=== PATIENT | female | born 1950 | race Hispanic/Latino ===

== ENCOUNTER 2021-10-20 19:14 | Emergency (ER) | payer OTHER, MEDICARE ==
[~2021-10-20] VITALS: Ht 162.6 cm; Wt 63.0 kg
[2021-10-20 19:30] VITALS: BP 168/84
[2021-10-20 19:47] LABS: BASOPHILS % (AUTO) 0.4 % (0.0-5.0); HEMATOCRIT 40.2 % (36-48); LYMPHOCYTES % (AUTO) 5.8 % (21.0-51.0); MEAN CORPUSCULAR HGB CONC 33.1 g/dL (32.0-36.0); MEAN CORPUSCULAR VOLUME 90.5 fL (79-99); MONOCYTES % (AUTO) 6.9 % (3.0-13.0); NEUTROPHILS % (AUTO) 86.5 % (40.0-77.0); PLATELET COUNT (AUTO) 220 K/uL (130-400); RED BLOOD CELL COUNT(AUTO) 4.44 MIL/uL (4.00-5.50); RED CELL DISTRIBUTION WIDTH 12.4 % (11.0-15.5); WHITE BLOOD COUNT (AUTO) 8.4 K/uL (4.8-10.8)
[2021-10-20] MEDS ORDERED: CETI10CA5 PO (19:48)
[2021-10-20] MEDS ORDERED: ONDANSETRON 4MG INJ IVP ONE (20:00)
[2021-10-20] MEDS ORDERED: KETOROLAC 15MG/ML VIAL (15MG/ML) IV ONE (20:00)
[2021-10-20] MEDS ORDERED: 0.9% NACL 500ML IV.SOLN 500 ML IV ONE (20:00)
[2021-10-20 20:19] LABS: CREATININE 0.7 mg/dL (0.5-1.5); POTASSIUM 3.4 mmol/L (3.5-5.1)
[2021-10-20 20:24] LABS: APPEARANCE,URINE Clear (CLEAR); BILIRUBIN,URINE Negative (NEGATIVE); COLOR,URINE Yellow (YELLOW); GLUCOSE, URINE (UA) Negative (NEGATIVE); KETONES,URINE 15 mg/dL (NEGATIVE); LEUKOCYTE ESTERASE ,URINE Trace (NEGATIVE); NITRATE,URINE Negative (NEGATIVE); OCCULT BLOOD,URINE Small (NEGATIVE); PROTEIN,URINE Trace mg/dL (NEGATIVE)
[2021-10-20 20:30] LABS: BACTERIA,URINE Rare /HPF (None Seen); SQUAMOUS EPITHELIAL CELL,UR Few /HPF (0-2)
[2021-10-20 20:32] LABS: ALBUMIN 3.9 g/dL (3.5-5.0); BILIRUBIN,TOTAL 0.6 mg/dL (0.2-1.0)
[2021-10-20] MEDS ORDERED: ONDA4TAB10 PO (20:54)
[2021-10-20] MEDS ORDERED: AZIT500T2 PO (20:54)
[2021-10-20] MEDS ORDERED: GUAIF10 PO (20:54)
[2021-10-20] MEDS ORDERED: ACET-66 PO (20:54)
== END 2021-10-20 21:22 | disposition home or self-care (01) ==
LOC: EDH 19:14
DX: U07.1 COVID-19 (principal); J45.909 Unspecified asthma, uncomplicated; Z98.890 Other specified postprocedural states
CPT/HCPCS: 36415; 71045; 80053; 81001; 83605; 84484; 85025; 85378; 87635; 87804 ×2; 93005; 96374; 96375; 99285; C9803; J1885; J2405; J7040